=== PATIENT | male | born 1990 | race Caucasian/White ===

== ENCOUNTER 2019-03-26 07:34 | Emergency (ER) | payer MEDICAID ==
[~2019-03-26] VITALS: Ht 172.7 cm; Wt 71.8 kg
[2019-03-26 07:58] VITALS: BP 146/68
== END 2019-03-26 09:10 | disposition home or self-care (01) ==
LOC: ER 07:34
DX: S60.221D Contusion of right hand, subsequent encounter (principal); W20.8XXD Other cause of strike by thrown, projected or falling object, subsequent encounter
CPT/HCPCS: 29125; 73130; 99283

== ENCOUNTER 2019-06-10 18:41 | Emergency (ER) | payer MEDICAID ==
[~2019-06-10] VITALS: Ht 170.2 cm; Wt 71.0 kg
[2019-06-10 19:14] VITALS: BP 117/55
[2019-06-10] MEDS ORDERED: AMOX500C2 PO (21:18)
[2019-06-10] MEDS ORDERED: LIDOcaine Viscous 15ml cup MM PRN (21:20)
--- NOTE | 2019-06-10 22:20 | NUR ---
LAC TO FACE, PATIENT HAD DROPPED A BARBELL ON HIS FACE. CLEANED. VISCOUS LIDO BY MD. DANA GARRISON. DISCH TO HOME WITH RX FOR AMOXICILLIN.
--- NOTE | 2019-06-10 23:54 | NUR ---
REPORT CALLED TO [facility]. VINNY YOUSSEF TOOK PATIENT REPORT. [facility] IS HERE TRANSPORTING. CIERA FRANKEL RN HAS TAKEN REPORT FROM THIS COMMUTATOR TESTER. THE PATIENT IS TRANSFERED.
== END 2019-06-11 01:44 | disposition home or self-care (01) ==
LOC: ER 18:41
DX: S01.511A Laceration without foreign body of lip, initial encounter (principal); W20.8XXA Other cause of strike by thrown, projected or falling object, initial encounter; Z79.2 Long term (current) use of antibiotics; Y93.89 Activity, other specified; Y92.89 Other specified places as the place of occurrence of the external cause; Y99.8 Other external cause status
CPT/HCPCS: 12011; 99283